=== PATIENT | female | born 1985 | race Caucasian/White ===

== ENCOUNTER 2020-09-27 13:05 | Outpatient (CLI) | payer BC ==
[2020-09-27 14:14] LABS: HEMOGLOBIN 12.8 gm/dl (12.3-15.3); RED BLOOD COUNT 4.5 M/UL (4.00-5.10); WHITE BLOOD COUNT 9.4 K/UL (4.5-11.0)
[2020-09-28] MEDS ORDERED: PRENATABS FA T1 EACH PO (06:14)
[2020-09-28] MEDS ORDERED: HYDROCODON-ACE1 EAC4 PO (08:04)
[2020-09-28] MEDS ORDERED: COLACE100 MG PO (08:04)
[2020-09-28] MEDS ORDERED: IBU600 MG PO (08:04)
== END 2020-09-27 15:02 | disposition home or self-care (01) ==
LOC: GENOP 13:05
PROVIDERS: Obstetrics & Gynecology
DX: Z53.8 Procedure and treatment not carried out for other reasons (principal)
CPT/HCPCS: 36415; 81001; 85025; J7120

== ENCOUNTER 2020-09-28 05:31 | Inpatient (IN) | payer BC ==
[~2020-09-28] VITALS: Ht 182.9 cm; Wt 110.7 kg
[2020-09-28] MEDS ORDERED: PRENATABS FA T1 EACH PO (06:14)
[2020-09-28] MEDS ORDERED: COLACE100 MG PO (08:04)
[2020-09-28] MEDS ORDERED: IBU600 MG PO (08:04)
[2020-09-28] MEDS ORDERED: HYDROCODON-ACE1 EAC4 PO (08:04)
[2020-09-29 04:09] LABS: HEMOGLOBIN 10.1 gm/dl (12.3-15.3)
== END 2020-09-30 15:30 | disposition home or self-care (01) | DRG 788 ==
LOC: OB 05:31
PROVIDERS: ADMIT Obstetrics & Gynecology
PROC: 3E0234Z Introduction of Serum, Toxoid and Vaccine into Muscle, Percutaneous Approach (ICD-10-PCS; 2020-09-28)
PROC: 4A1HXCZ Monitoring of Products of Conception, Cardiac Rate, External Approach (ICD-10-PCS; 2020-09-28)
PROC: 10D00Z1 Extraction of Products of Conception, Low, Open Approach (ICD-10-PCS; principal; 2020-09-28 07:58)
PROC: 3E0234Z Introduction of Serum, Toxoid and Vaccine into Muscle, Percutaneous Approach (ICD-10-PCS; 2020-09-29)
DX: O34.211 Maternal care for low transverse scar from previous cesarean delivery (principal); Z3A.39 39 weeks gestation of pregnancy; Z37.0 Single live birth; Z20.822 Contact with and (suspected) exposure to COVID-19; O36.63X0 Maternal care for excessive fetal growth, third trimester, not applicable or unspecified; O99.62 Diseases of the digestive system complicating childbirth; K21.9 Gastro-esophageal reflux disease without esophagitis; Z23 Encounter for immunization; Z83.3 Family history of diabetes mellitus
CPT/HCPCS: 36415; 81001; 82800; 85014; 85018; 85025; 85461; 86850; 86900; 86901; 90471; 90472; 90686; C9113; J0690; J1170; J1885; J2210; J2274; J2405; J2590; J2790; J3010; J7120; U0003